=== PATIENT | female | born 1945 ===

== ENCOUNTER 2022-11-27 14:18 | Outpatient (CLI) | payer OTHER | END 2022-11-27 14:24 | disposition home or self-care (01) | LOC: RAD 14:18 | PROVIDERS: ATTEND Ophthalmology | DX: Z01.810 Encounter for preprocedural cardiovascular examination (principal) ==

== ENCOUNTER 2023-08-18 13:37 | Outpatient (CLI) | payer OTHER | END 2023-08-18 13:39 | disposition home or self-care (01) | LOC: NUCLEAR 13:37 | PROVIDERS: ATTEND General Practice | DX: M81.0 Age-related osteoporosis without current pathological fracture (principal) ==